=== PATIENT | male | born 1945 | race Caucasian/White ===

== ENCOUNTER → 2019-09-04 08:58 | Outpatient (CLI) | payer MEDICARE, SELFPAY ==
[2019-09-04 09:46] LABS: Add Manual Diff / Slide Review NO; Basophils Absolute Auto 100 /uL (0-100); Basophils Percent Auto 0.8 % (0-2); Eosinophils Absolute Auto 200 /uL (0-450); Eosinophils Percent Auto 2.8 % (2-4); Hematocrit 46.5 % (41-53); Hemoglobin 15.9 g/dL (13.5-17.5); Lymphocytes Absolute Auto 1600 /uL (1100-4500); Lymphocytes Percent Auto 24.3 % (25-40); Mean Corpuscular HGB Conc 34.3 % (30-36); Mean Corpuscular Hemoglobin 30.7 PG (26-34); Mean Corpuscular Volume 89.6 fL (80-100); Monocytes Absolute Auto 600 /uL (0-900); Monocytes Percent Auto 9.3 % (3-14); Neutrophils Absolute Auto 4200 /uL (1500-7000); Neutrophils Percent Auto 62.8 % (50-75); Platelet Count 205 X10^3/uL (150-400); Red Blood Cell Count 5.19 X10^6/uL (4.5-5.9); Red Cell Distribution Width 15.6 % (11.6-14.8); White Blood Cell Count 6.8 X10^3/uL (4.5-11.0)
[2019-09-04 10:15] LABS: Alanine Aminotransferase 23 IU/L (<50); Albumin 4.4 g/dL (3.5-5.0); Albumin Globulin Ratio 1.6 (1.0-2.8); Alkaline Phosphatase 76 U/L (38-126); Aspartate Aminotransferase 25 IU/L (17-59); BUN Creatinine Ratio 13.8 (6-22); Bilirubin Total 1.3 mg/dL (0.2-1.3); Blood Urea Nitrogen 13 mg/dL (9-20); Calcium 9.9 mg/dL (8.4-10.2); Carbon Dioxide 26 mmol/L (22-32); Chloride 104 mmol/L (98-107); Cholesterol 185 mg/dL (140-199); Estimated Glomerular Filt Rate > 60.0 mL/min (>60); Globulin 2.8 g/dL (1.7-4.1); Glucose 105 mg/dL (80-110); HDL Cholesterol 52 mg/dL (40-60); HEMOLYSIS < 15 (0-50); LDL Cholesterol Calculated 106 mg/dL (<100); Potassium 4.9 mmol/L (3.4-5.1); Sodium 138 mmol/L (137-145); Total Protein 7.2 g/dL (6.3-8.2); Triglycerides 136 mg/dL (35-150)
[2019-09-04 10:40] LABS: Prostate Specific Antigen Scrn 1.16 ng/mL (0.1-4.0)
== END ==
PROVIDERS: Family Provider Internal Medicine; PCP Internal Medicine; Referring Provider Internal Medicine; Visit Provider Internal Medicine
DX: E78.5 Hyperlipidemia, unspecified (principal); E66.9 Obesity, unspecified; M15.0 Primary generalized (osteo)arthritis; Z12.5 Encounter for screening for malignant neoplasm of prostate
CPT/HCPCS: 36415; 80053; 80061; 85025; G0103

== ENCOUNTER → 2020-05-17 09:00 | Outpatient (CLI) | payer OTHER, SELFPAY ==
--- NOTE | 2020-05-17 | DI.RAD.S_ITS ---
PROCEDURE: XR CHEST 2V INDICATIONS: EXERTIONAL CHEST PAIN TECHNIQUE: 2 views of the chest were acquired. COMPARISON: CT, ABDOMEN/PELVIS WITH CONTRAST, 12/08/2013, 13:17. [facility], , CHEST 2 VIEW, 06/03/2012, 12:40. [facility], , CHEST 2 VIEW, 04/13/2011, 13:40. FINDINGS: Surgical changes and devices: None. Lungs and pleura: No consolidation identified. Prominent pulmonary markings bilaterally similar to remote chest x-rays. No pleural effusions or pneumothorax. Mediastinum: Mediastinal contours appear unchanged. Density at the left cardiophrenic angle is similar to the prior exams and likely corresponds to the small Bochdalek hernia seen on prior CT from 2013. Heart size is normal. Bones and chest wall: No suspicious bony abnormalities. Soft tissues appear unremarkable. IMPRESSION: No acute cardiopulmonary abnormality. Small left Bochdalek hernia. Dictated by: Cristopher Quinteros M.D. on 05/17/2020 at 9:19 Approved by: Cristopher Quinteros M.D. on 05/17/2020 at 9:22
== END ==
PROVIDERS: Family Provider Internal Medicine; PCP Internal Medicine; Referring Provider Internal Medicine; Visit Provider Internal Medicine
DX: R07.9 Chest pain, unspecified (principal); M15.0 Primary generalized (osteo)arthritis; Q79.0 Congenital diaphragmatic hernia
CPT/HCPCS: 71046

== ENCOUNTER → 2020-05-24 11:20 | Outpatient (CLI) | payer OTHER, SELFPAY ==
[2020-05-24 14:49] LABS: COVID19 -Nasal RAPID Negative (Negative)
== END ==
PROVIDERS: Family Provider Internal Medicine; PCP Internal Medicine; Visit Provider Physician Assistant
DX: Z20.822 Contact with and (suspected) exposure to COVID-19 (principal)
CPT/HCPCS: 87635

== ENCOUNTER → 2020-05-26 10:04 | Outpatient (CLI) | payer OTHER, SELFPAY ==
--- NOTE | 2020-05-26 15:14 | PM.TREADMILL ---
Cardiac Stress Test Report Referral & Results Date Patient Seen: 05/26/20 Time Patient Seen: 15:15 Requesting provider: Glynn Paul Indication: chest pain Rest ECG: sinus rhythm with RBBB Procedure Note: After Lexiscan injection, had minimal dyspnea, no chest pain No significant ST changes after Lexiscan injection Occasional PVCs Impression: Normal Lexiscan stress test Please note: Actual ECG tracings can be found in the PACS system.
--- NOTE | 2020-05-27 16:38 | DI.NM.S_ITS ---
DATE OF SERVICE: 05/26/2020 PROCEDURE: Pharmacological perfusion study. INDICATIONS: Chest pain with underlying hyperlipidemia. The patient is a 75- year-old male. CARDIAC STRESS: 24.2 millicurie technetium-99m Myoview IV was injected at stress and 12.6 millicurie technetium-99m Myoview IV was injected at rest. CARDIAC STRESS: The patient underwent IV Lexiscan perfusion study under the supervision of an attending staff. The patient remained hemodynamically stable. [place] minimal dyspnea. No chest pain. Baseline rhythm was sinus with right bundle branch block, left anterior fascicular block and frequent PACs including atrial bigeminy. During stress, there were no new convincing ischemic changes. The patient remained to have intermittent PACs, as well as developed isolated PVCs without any ventricular tachycardia or obvious AFib. RAW DATA: There is increased subdiaphragmatic activity. Patient's weight is 231 pounds. GATED STUDY: Stress LV ejection fraction is 58 percent, however, on visualization, it was a poor gated study. Resting end-diastolic volume 125 mL. TID ratio 1.12, which is within normal limits. Lung/heart ratio 0.36, which is within normal limits. Cannot comment upon wall motion abnormalities, however, no gross wall motion abnormalities seen. MYOCARDIAL PERFUSION: Stress supine, resting supine and stress prone images were compared to each other. Stress supine and resting supine images revealed moderate-size, moderate to severely decreased perfusion of inferior wall, inferoapex, which got significantly improved during prone images. Prone images remaining have mildly decreased perfusion of distal inferior wall. No reversible ischemia. CONCLUSION: 1. No obvious reversible ischemia. 2. Stress supine and resting supine images showed moderate-sized, moderate to severely decreased perfusion of the inferior wall, inferoapex, which got significantly improved during prone images. Prone images remaining have mildly decreased perfusion of distal inferior wall. This suggests diaphragmatic tissue attenuation artifact and some persistent tissue attenuation artifact. The patient had exercise perfusion study in April,, at that time also, the patient had fixed inferior wall defect. There was no reversible ischemia. In this study, there is improvement during prone images. Overall, this is a low- risk myocardial perfusion study. Hui Luis Alfredo - Christina/renata doc#: [id number]/job#: [id number] dd: 05/26/2020 17:48:00 dt: 05/26/2020 19:41:00 DICTATING MD/COPIES TO: Bertha Veloz MD COPIES MNE: [id number];
== END ==
PROVIDERS: Family Provider Internal Medicine; PCP Internal Medicine; Referring Provider Internal Medicine; Visit Provider Internal Medicine
DX: R07.9 Chest pain, unspecified (principal); E78.5 Hyperlipidemia, unspecified
CPT/HCPCS: 78452; 93017; A9502; J2785

== ENCOUNTER → 2020-12-06 13:02 | Outpatient (CLI) | payer OTHER, SELFPAY ==
[2020-12-06 14:13] LABS: Add Manual Diff / Slide Review NO; Basophils Absolute Auto 100 /uL (0-100); Basophils Percent Auto 1.3 % (0-2); Eosinophils Absolute Auto 300 /uL (0-450); Eosinophils Percent Auto 3.2 % (2-4); Hematocrit 46.1 % (41-53); Lymphocytes Absolute Auto 1900 /uL (1100-4500); Lymphocytes Percent Auto 24.1 % (25-40); Mean Corpuscular HGB Conc 32.6 % (30-36); Mean Corpuscular Hemoglobin 30.4 PG (26-34); Mean Corpuscular Volume 93.1 fL (80-100); Monocytes Absolute Auto 800 /uL (0-900); Monocytes Percent Auto 9.4 % (3-14); Neutrophils Absolute Auto 5000 /uL (1500-7000); Platelet Count 213 X10^3/uL (150-400); Red Blood Cell Count 4.95 X10^6/uL (4.5-5.9); Red Cell Distribution Width 13.9 % (11.6-14.8)
[2020-12-06 16:08] LABS: Alanine Aminotransferase 21 IU/L (<50); Albumin 4.3 g/dL (3.5-5.0); Albumin Globulin Ratio 1.6 (1.0-2.8); Alkaline Phosphatase 64 U/L (38-126); Aspartate Aminotransferase 22 IU/L (17-59); BUN Creatinine Ratio 16.7 (6-22); Bilirubin Total 1.2 mg/dL (0.2-1.3); Blood Urea Nitrogen 14 mg/dL (9-20); Calcium 9.3 mg/dL (8.4-10.2); Carbon Dioxide 27 mmol/L (22-32); Chloride 102 mmol/L (98-107); Cholesterol 203 mg/dL (140-199); Estimated Glomerular Filt Rate > 60.0 mL/min (>60); Globulin 2.7 g/dL (1.7-4.1); Glucose 90 mg/dL (80-110); HDL Cholesterol 63 mg/dL (40-60); HEMOLYSIS 42 (0-50); LDL Cholesterol Calculated 108 mg/dL (<100); Potassium 5.1 mmol/L (3.4-5.1); Sodium 139 mmol/L (137-145); Triglycerides 158 mg/dL (35-150)
== END ==
PROVIDERS: Family Provider Internal Medicine; PCP Internal Medicine; Referring Provider Internal Medicine; Visit Provider Internal Medicine
DX: M15.0 Primary generalized (osteo)arthritis (principal); E78.5 Hyperlipidemia, unspecified; I87.2 Venous insufficiency (chronic) (peripheral)
CPT/HCPCS: 36415; 80053; 80061; 85025

== ENCOUNTER → 2023-07-13 16:35 | Outpatient (CLI) | payer MEDICARE, SELFPAY ==
[2023-07-13 18:01] LABS: Influenza A - CEPHEID Flu A NEGATIVE (NEGATIVE); Influenza B - CEPHEID Flu B NEGATIVE (NEGATIVE); Respiratory Syncytial Virus Negative (Negative)
[2023-07-13 18:23] LABS: COVID-19 CEPHEID 4-PLEX PCR Negative (Negative)
== END ==
PROVIDERS: Family Provider Internal Medicine; PCP Internal Medicine; Visit Provider Internal Medicine
DX: B34.9 Viral infection, unspecified (principal)
CPT/HCPCS: 0241U

== ENCOUNTER 2023-07-24 08:27 | Observation (INO) | payer MEDICARE, SELFPAY ==
[2023-07-24] VITALS (62 sets, daily range): BP systolic 88–152; BP diastolic 57–103; PULSE 68–136; RESP 15–38; TEMP 36.8–37.3; O2SAT 90–99; BMI 30.7; BMI 29.9
--- NOTE | 2023-07-24 08:37 | DI.RAD.S_ITS ---
PROCEDURE: XR CHEST 1V INDICATIONS: chest pain TECHNIQUE: One view of the chest was acquired. COMPARISON: [facility], [place], XR CHEST 2V, 05/17/2020, 9:03. [facility], , CHEST 2 VIEW, 06/03/2012, 12:40. FINDINGS: Surgical changes and devices: None. Lungs and pleura: Lungs are clear. No pleural effusions or pneumothorax. Mediastinum: Mediastinal contours appear normal. Heart size is enlarged. Bones and chest wall: No suspicious bony lesions. Overlying soft tissues appear unremarkable. IMPRESSION: No acute cardiopulmonary abnormality is seen. Dictated by: Pancho Johnson M.D. on 07/24/2023 at 9:12 Approved by: Pancho Johnson M.D. on 07/24/2023 at 9:12
[2023-07-24 08:57] LABS: Add Manual Diff / Slide Review NO; Basophils Absolute Auto 100 /uL (0-100); Basophils Percent Auto 0.7 % (0-2); Eosinophils Absolute Auto 400 /uL (0-450); Hematocrit 43.9 % (41-53); Hemoglobin 14.6 g/dL (13.5-17.5); Lymphocytes Absolute Auto 1500 /uL (1100-4500); Lymphocytes Percent Auto 16.8 % (25-40); Mean Corpuscular HGB Conc 33.2 % (30-36); Mean Corpuscular Hemoglobin 31.1 PG (26-34); Mean Corpuscular Volume 93.7 fL (80-100); Monocytes Absolute Auto 900 /uL (0-900); Monocytes Percent Auto 9.5 % (3-14); Neutrophils Absolute Auto 6200 /uL (1500-7000); Platelet Count 210 X10^3/uL (150-400); Red Blood Cell Count 4.68 X10^6/uL (4.5-5.9); Red Cell Distribution Width 14.1 % (11.6-14.8)
--- NOTE | 2023-07-24 09:07 | DI.ECHO.S_ITS ---
[place] +---------+ Hospital : : [address] : : [place] : : [id number] : : Phone: [phone] Echocardiogram Report + + :Name: KP GR Study Date: 07/24/2023 Height: 72 in : :Hospital ReadingLocation: Weight: 227 lb : : Gender: Male BSA: 2.2 m2 : :: 1945 Age: 78 yrs BP: 122/83 mmHg: :Reason For Study: ATRIAL FIBRILLATION : :Ordering Physician: OSMANY, : :CHICO Broussard Performed By: Patsy Beckett : :Referring: CHICO CERON : + + Interpretation Summary The patient was in atrial fibrillation with heart rates between 82-107 bpm during the exam. The left ventricle is normal in size and wall thickness. Left ventricular ejection fraction is estimated to be 35 +/- 5%. Previously LVEF 55 to 60% with sinus rhythm. Left ventricular function has significantly worsened compared to the previous exam. Overall moderate to severe global hypokinesis with severe hypokinesis of the inferior wall extending into the inferior lateral wall. Relatively better contraction at the apex. The right ventricle is moderately dilated. Right ventricular systolic function is mild to moderately reduced. Right ventricular size has increased since the prior echo exam. Right ventricular systolic function has decreased since previous exam. There is mild to moderate tricuspid regurgitation. The right ventricular systolic pressure is estimated to be at least 35 mmHg based on an estimated right atrial pressure of 15 mm Hg. Mild atherosclerotic plaque(s) in the aortic arch. Procedure: A two-dimensional transthoracic echocardiogram with color flow and Doppler was performed. The study quality was technically adequate. Comparison is made with the echocardiogram of 04/13/2011. The patient had occasional PVCs during the exam. The patient was in atrial fibrillation with heart rates between 82-107 bpm during the exam. The patient had a bundle branch block rhythm during the exam. Left Ventricle: The left ventricle is normal in size and wall thickness. There is no thrombus. Left ventricular ejection fraction is estimated to be 35 +/- 5%. Left ventricular function has significantly worsened compared to the previous exam. Overall moderate to severe global hypokinesis with severe hypokinesis of the inferior wall extending into the inferior lateral wall. Relatively better contraction at the apex. Diastolic function could not be accurately assessed due to atrial fibrillation. Right Ventricle: The right ventricle is moderately dilated. Right ventricular size has increased since the prior echo exam. Right ventricular systolic function is mild to moderately reduced. Right ventricular systolic function has decreased since previous exam. Atria: The left atrium is severely dilated. The left atrium has mildly increased in size since the prior echo exam. The right atrium is severely dilated. The right atrium has significantly increased in size since the prior echo exam. There is no Doppler evidence for an interatrial shunt. Mitral Valve: There is mild mitral annular calcification. There is mild mitral regurgitation. Aortic Valve: The aortic valve is trileaflet. The aortic valve opens well. There is no aortic valve stenosis. No aortic regurgitation is present. Tricuspid Valve: The tricuspid annulus is dilated. There is mild to moderate tricuspid regurgitation. The right ventricular systolic pressure is estimated to be at least 35 mmHg based on an estimated right atrial pressure of 15 mm Hg. Pulmonic Valve: The pulmonic valve leaflets are thin and pliable; valve motion is normal. There is trace pulmonic regurgitation. Great Vessels: The aortic root is normal size. The dimensions of the ascending aorta are normal. Mild atherosclerotic plaque(s) in the aortic arch. The IVC is dilated (diameter is greater than 2.1 cm) and it collapses less than 50% with a sniff. This suggests a high right atrial pressure of 15 mm Hg. Pericardium/ Pleura There is no pericardial effusion. There is no pleural effusion. MMode/2D Measurements & Calculations LVIDd: 5.5 cm LVOT diam: 2.3 cm LVIDs: 4.4 cm Ao root diam: 3.5 cm FS: 20.1 % asc Aorta Diam: 3.3 cm EPSS: 0.97 cm Ao Arch Diam (Prox Trans): 2.7 cm IVSd: 0.94 cm LVPWd: 0.88 cm LV foote. diameter/BSA (cm/m^2): 2.5 LV sys. diameter/BSA (cm/m^2): 2.0 LA A2 area: 28.8 cm2 RA long axis: 6.8 cm LA A4 area: 30.7 cm2 RA area: 30.0 cm2 LA length (vol): 6.7 cm RA vol: 112.5 ml LA vol: 112.8 ml RA : 50.1 ml/m2 LA vol index: 50.2 ml/m2 IVC diam: 2.9 cm RVD1 (basal): 5.3 cm RVD2 (mid): 3.7 cm TAPSE: 1.5 cm Doppler Measurements & Calculations Ao V2 max: 116.0 cm/sec LVOT Max Mack: 73.0 cm/sec Ao V2 mean: 85.2 cm/sec LV V1 max P.1 mmHg Ao max P.4 mmHg LV V1 VTI: 12.7 cm Ao mean P.1 mmHg YAMILET(I,D): 2.7 cm2 Ao V2 VTI: 19.7 cm YAMILET(V,D): 2.6 cm2 sev ratio: 0.65 YAMILET indexed to BSA (cm^2/m^2): 1.2 MV E max mack: 80.5 cm/sec TR max mack: 225.4 cm/sec MV A max mack: 1.1 cm/sec TR max P.3 mmHg MV E/A: 74.5 PA V2 max: 90.3 cm/sec Med Peak E' Mack: 7.2 cm/sec PA V2 mean: 62.1 cm/sec E/E' med: 11.2 PA mean P.8 mmHg Lat Peak E' Mack: 8.4 cm/sec PA pr(Accel): 37.9 mmHg E/E' lat: 9.6 E/e' average: 10.4 MV dec time: 0.19 sec SV(LVOT): 53.6 ml Reading Physician:01:32 PM
[2023-07-24 09:08] LABS: Alanine Aminotransferase 90 IU/L (<50); Albumin 3.8 g/dL (3.5-5.0); Albumin Globulin Ratio 1.5 (1.0-2.8); Alkaline Phosphatase 79 U/L (38-126); Aspartate Aminotransferase 45 IU/L (17-59); BUN Creatinine Ratio 17.5 (6-22); Bilirubin Total 1.9 mg/dL (0.2-1.3); Blood Urea Nitrogen 18 mg/dL (9-20); Calcium 8.6 mg/dL (8.4-10.2); Carbon Dioxide 25 mmol/L (22-32); Chloride 107 mmol/L (98-107); Creatine Kinase 51 U/L (55-170); Estimated Glomerular Filt Rate > 60 mL/min (>60); Globulin 2.6 g/dL (1.7-4.1); Glucose 104 mg/dL (80-110); HEMOLYSIS 18 (0-50); Lipase 153 U/L (23-300); Potassium 4.4 mmol/L (3.4-5.1); Sodium 136 mmol/L (137-145); Total Protein 6.4 g/dL (6.3-8.2)
[2023-07-24] MEDS: DILTIAZEM 125 MG/125 ML PIGGYBACK IV (09:15)
[2023-07-24 09:17] LABS: NT-proBNP (BNP-Adult 18+) 2980 pg/mL (<450)
[2023-07-24 09:19] LABS: Troponin I 0.016 ng/mL (0.01-0.034)
--- NOTE | 2023-07-24 09:47 | ED.GENADULT ---
HPI - General Adult General Chief complaint: Shortness of Breath/Dyspnea Stated complaint: dyspnea Time Seen by Provider: 07/24/23 08:37 Source: patient Mode of arrival: Family Vehicle History of Present Illness HPI narrative: 78-year-old gentleman with a history of asthma, hyperlipidemia, history of bladder cancer presents with persistent cough. Was seen on July 12 by his primary physician who felt that he either had a viral syndrome or an atypical bronchitis with negative COVID influenza and RSV testing done at that time. He notes that he had significant upper respiratory symptoms for a week preceding that visit.. He was placed on a Medrol Dosepak and Z-Sal. He presents to urgent Care today saying the he has has improved with overall cough but is still complains of cough, dyspnea, lower extremity edema, exertional dyspnea and orthopnea. No overt chest pain or headache. No fevers. He has no sensation that his heart rate is going fast Related Data Home Medications Medication Instructions Recorded Confirmed multivitamin 1 tab PO DAILY 01/18/23 07/13/23 Previous Rx's Medication Instructions Recorded atorvastatin 20 mg tablet 20 mg PO DAILY #90 tabs 01/18/23 Allergies Allergy/AdvReac Type Severity Reaction Status Date / Time No Known Drug Allergies Allergy Verified 07/24/23 08:37 Review of Systems Review of Systems Narrative: Pertinent positive and negative findings as per HPI Patient History Medical History Overweight History of bladder cancer Mixed hyperlipidemia Social History details: (Aide), no children; retired shipyard work Smoking Status: Former smoker Smoking Status: Former smoker tobacco type: cigarettes alcohol intake frequency: holidays/special occasions only Substance Use Type: does not use Exam Initial Vital Signs Initial Vital Signs: Vital Signs Temperature 98.3 F 07/24/23 08:31 Pulse Rate 124 H 07/24/23 08:31 Respiratory Rate 22 07/24/23 08:31 Blood Pressure 145/96 H 07/24/23 08:31 Pulse Oximetry 99 07/24/23 08:31 Oxygen Delivery Method Room Air 07/24/23 08:31 General: Healthy appearing, in no acute distress. Able to give a complete and coherent history. Well-nourished well-developed HEENT: Moist mucous membranes, normal sclera with reactive pupils, Neck: Mild JVD, Respiratory: Minimal bibasilar crackles, no rhonchi, no wheezing Cardiac: Rate is in the 120 range, he is in atrial fibrillation and it is a regular Abdomen: Soft, nontender, good bowel tones, no flank pain Skin: Warm and dry, no rashes Neurologic: Grossly neurologically intact with no obvious asymmetries or abnormalities Extremities: No trauma, well perfused, 1+ bilateral edema Psych: Cooperative, appropriate insight and affect Course Orders Ordered: ED Orders 07/24/23 08:37 XR chest 1V Stat EKG-12 Lead Stat 07/24/23 08:50 Complete Blood Count AUTO DIFF Stat Comprehensive Metabolic Panel Stat Lipase Stat NT-proBNP (BNP-Adult 18+) Stat Troponin & CK Cardiac Panel Stat 07/24/23 09:07 EC echo doppler complete Urgent DILTIAZEM (Diltiazem 125 Mg/125 Ml-D5w) 125 mg in 125 mls @ 5 mls/hr IV TITRATE DEDE; Protocol Last Titration: 07/24/23 09:50 Dose: 10 mg/hr, 10 mls/hr Documented By: Admin: 07/24/23 09:15 Dose: 5 mg/hr, 5 mls/hr Documented By: HARRY Discontinued Medications Diltiazem HCl (Diltiazem 5 Mg/Ml Sdv) 20 mg IV NOW ONE Stop: 07/24/23 10:02 Vital Signs Vital signs: Vital Signs - 8 hr 07/24/23 08:31 07/24/23 08:41 07/24/23 08:48 Temperature 98.3 F Pulse Rate 124 H 135 H 135 H Respiratory Rate 22 Blood Pressure 145/96 H Pulse Oximetry 99 97 Oxygen Delivery Method Room Air 07/24/23 08:48 07/24/23 09:00 07/24/23 09:00 Temperature Pulse Rate 127 H Respiratory Rate 20 Blood Pressure 129/78 141/103 H Pulse Oximetry 96 Oxygen Delivery Method 07/24/23 09:26 07/24/23 09:26 07/24/23 09:30 Temperature Pulse Rate 136 H 133 H Respiratory Rate 22 22 Blood Pressure 110/80 Pulse Oximetry 97 Oxygen Delivery Method 07/24/23 09:31 07/24/23 09:31 07/24/23 09:35 Temperature Pulse Rate 132 H 125 H Respiratory Rate 22 19 Blood Pressure 144/89 H Pulse Oximetry 96 96 Oxygen Delivery Method 07/24/23 09:35 Temperature Pulse Rate Respiratory Rate Blood Pressure 126/88 Pulse Oximetry Oxygen Delivery Method Medical Decision Making Lab Data 07/24/23 08:50 07/24/23 08:50 Labs: Lab Results 07/24/23 Range/Units 08:50 WBC 9.0 (4.5-11.0) X10^3/uL RBC 4.68 (4.5-5.9) X10^6/uL Hgb 14.6 (13.5-17.5) g/dL Hct 43.9 (41-53) % MCV 93.7 (80-100) fL MCH 31.1 (26-34) PG MCHC 33.2 (30-36) % RDW 14.1 (11.6-14.8) % Plt Count 210 (150-400) X10^3/uL Neut % (Auto) 69.0 (50-75) % Lymph % (Auto) 16.8 L (25-40) % [place] % (Auto) 9.5 (3-14) % Eos % (Auto) 4.0 (2-4) % Baso % (Auto) 0.7 (0-2) % Neut # (Auto) 6200 (0785-5375) /uL Lymph # (Auto) 1500 (5320-5979) /uL [place] # (Auto) 900 (0-900) /uL Eos # (Auto) 400 (0-450) /uL Baso # (Auto) 100 (0-100) /uL Sodium 136 L (137-145) mmol/L Potassium 4.4 (3.4-5.1) mmol/L Chloride 107 (98-107) mmol/L Carbon Dioxide 25 (22-32) mmol/L BUN 18 (9-20) mg/dL Creatinine 1.03 (0.66-1.25) mg/dL Estimated GFR > 60 (>60) mL/min BUN/Creatinine Ratio 17.5 (6-22) Glucose 104 (80-110) mg/dL Calcium 8.6 (8.4-10.2) mg/dL Total Bilirubin 1.9 H (0.2-1.3) mg/dL AST 45 (17-59) IU/L ALT 90 H (<50) IU/L Alkaline Phosphatase 79 (38-126) U/L Total Creatine Kinase 51 L (55-170) U/L Troponin I 0.016 (0.01-0.034) ng/mL NT-Pro-B Natriuret Pep 2980 H (<450) pg/mL Total Protein 6.4 (6.3-8.2) g/dL Albumin 3.8 (3.5-5.0) g/dL Globulin 2.6 (1.7-4.1) g/dL Albumin/Globulin Ratio 1.5 (1.0-2.8) Lipase 153 (23-300) U/L MDM Narrative Medical decision making narrative: CC: Persistent cough Complicating co-morbidities: New diagnosis atrial fibrillation with rapid ventricular response, clinical exam consistent with congestive heart failure, mild asthma Data collected from: patient, Medical records reviewed: Notes from recent outpatient visits are reviewed Differential considered: Viral syndrome, postviral cardiomyopathy, new atrial fibrillation, rate related congestive heart failure, NSTEMI with subsequent heart failure Exam documented above, pertinent findings include: Mild JVD, minimal basilar crackles, minimal lower extremity edema, no significant wheezing exam is otherwise benign Lab Test results independently reviewed as above. Pertinent findings: CBC is unremarkable. No leukocytosis no significant anemia Chemistries are reassuring with normal renal function. Bili minimally elevated at 1.9 AST slightly elevated at 90 Troponin is undetectable BNP is elevated at 2980 lipase is not elevated Independently reviewed EKG: Atrial fibrillation at a rate of 130. Right bundle branch block no acute ischemia Imaging studies independently reviewed: Chest x-ray shows mild cardiomegaly with mild cephalization but not overt volume overload Consultations: Treatments: Diltiazem and diltiazem drip with a goal of rate below 100. Parenteral furosemide for his mild volume overload, oral apixaban while we are sorting through his new diagnosis of atrial fibrillation reduce his risk of stroke. Re-evaluations: Discussion: 78-year-old gentleman with what sounds like a viral syndrome about 3 weeks ago, treated with prednisone and azithromycin about 1 week ago most of those symptoms have resolved however he continues to have a slight cough, exertional dyspnea and orthopnea. He is found today to be in new atrial fibrillation with rate related congestive heart failure. He does not have a sensation of palpitations her his heart going fast. No chest pain and no evidence of acute coronary syndrome or recent acute coronary event. D-dimer was added to see if we should do a chest can concern for pulmonary embolism. He is on IV diltiazem for rate control, IV Lasix for diuresis and has been given apixaban is an oral anticoagulant. He has in no acute distress at this time but will need hospital admission for further evaluation of his atrial fibrillation. His primary care physician is Dr. Chaidez and Dr. Hidalgo, hospitalist will admit this patient for further evaluation Critical Care Time Critical Care Time Critical Care Time: Yes Total Critical Care Time: 37 Attestation: Critical care time is separate from other billable procedures. There is a high probability of a significant, sudden or life-threatening deterioration that requires my full and direct attention, intervention and personal management. This critical care time includes consultation with family and other consulting doctors, review of records, and interpretation of data from labs, EKGs and imaging as well as managements of atrial fibrillation with rapid ventricular response with parenteral rate control medications as well as parenteral diuretics Discharge Plan Departure Patient Disposition: Admitted as Observation Clinical Impression: New onset a-fib, Atrial fibrillation with rapid ventricular response Congestive heart failure Qualifiers: Heart failure type: unspecified Heart failure chronicity: acute Qualified Code(s): I50.9 - Heart failure, unspecified
[2023-07-24] MEDS: FUROSEMIDE 40 MG/4 ML VIAL IV (10:09)
[2023-07-24] MEDS: APIXABAN 5 MG TABLET PO ×2 (10:09→20:20)
[2023-07-24] MEDS: dilTIAZem 5 MG/ML SDV 20 MG IV (10:11)
[2023-07-24 10:33] LABS: D Dimer 4288 ng/ml (<500)
--- NOTE | 2023-07-24 11:03 | P.HP_ITS ---
History of Present Illness History of Present Illness Date Patient Seen: 07/24/23 Chief complaint: dyspnea Narrative: Luis Alfredo Ames is an 78yo M with PMH of bladder cancer, HLD and asthma who presents with new-onset A-fib RVR in the setting of likely viral URI. Patient notes 3 weeks of cough, rhinorrhea, SOB and fatigue. Was given abx and steroids which helped some, then his SOB worsened and he developed orthopnea. Sent to the ED from the walk-in clinic after being found in A-fib RVR. In the ED placed on dilt drip and given 40 of IV lasix. Patient's currently at bedside and says she thinks he likely has undiagnosed sleep apnea. He snores loudly and sometimes stops breathing. Has never had a sleep study. Patient currently feels well at rest, but gets very SOB when lying flat. He cannot feel when his HR is fast. Denies CP, NV, abd pain, or diarrhea. He denies alcohol use. [facility] Medical History Overweight History of bladder cancer Mixed hyperlipidemia Social History details: (Aied), no children; retired shipyard work household members: spouse Smoking Status: Former smoker Meds Home Medications and Allergies Home Medications Medication Instructions Recorded Confirmed Type atorvastatin 20 mg tablet 20 mg PO DAILY #90 tabs 01/18/23 07/24/23 Rx multivitamin 1 tab PO DAILY 01/18/23 07/24/23 History Allergies Allergy/AdvReac Type Severity Reaction Status Date / Time No Known Drug Allergies Allergy Verified 07/24/23 08:37 Review of Systems Review of Systems Narrative: All other systems reviewed with the patient and are negative unless otherwise stated. Exam Vital Signs (past 8 hours): - 07/24/23 08:31 07/24/23 08:41 07/24/23 08:48 Temperature 98.3 F Pulse Rate 124 H 135 H 135 H Respiratory Rate 22 Blood Pressure 145/96 H Pulse Oximetry 99 97 Oxygen Delivery Method Room Air 07/24/23 08:48 07/24/23 09:00 07/24/23 09:00 Temperature Pulse Rate 127 H Respiratory Rate 20 Blood Pressure 129/78 141/103 H Pulse Oximetry 96 Oxygen Delivery Method 07/24/23 09:26 07/24/23 09:26 07/24/23 09:30 Temperature Pulse Rate 136 H 133 H Respiratory Rate 22 22 Blood Pressure 110/80 Pulse Oximetry 97 Oxygen Delivery Method 07/24/23 09:31 07/24/23 09:31 07/24/23 09:35 Temperature Pulse Rate 132 H 125 H Respiratory Rate 22 19 Blood Pressure 144/89 H Pulse Oximetry 96 96 Oxygen Delivery Method 07/24/23 09:35 07/24/23 09:40 07/24/23 09:40 Temperature Pulse Rate 127 H Respiratory Rate 18 Blood Pressure 126/88 128/97 H Pulse Oximetry 97 Oxygen Delivery Method 07/24/23 09:46 07/24/23 09:46 07/24/23 09:51 Temperature Pulse Rate 130 H Respiratory Rate 24 Blood Pressure 152/85 H 126/88 Pulse Oximetry 97 Oxygen Delivery Method 07/24/23 09:51 07/24/23 09:55 07/24/23 09:55 Temperature Pulse Rate 122 H 125 H Respiratory Rate 20 19 Blood Pressure 129/102 H Pulse Oximetry 96 97 Oxygen Delivery Method 07/24/23 10:00 07/24/23 10:00 07/24/23 10:06 Temperature Pulse Rate 119 H 130 H Respiratory Rate 23 Blood Pressure 129/87 Pulse Oximetry 97 96 Oxygen Delivery Method 07/24/23 10:06 07/24/23 10:10 07/24/23 10:10 Temperature Pulse Rate 120 H Respiratory Rate 22 Blood Pressure 139/103 H 129/102 H Pulse Oximetry 96 Oxygen Delivery Method 07/24/23 10:20 07/24/23 10:20 07/24/23 10:25 Temperature Pulse Rate 109 H 92 H Respiratory Rate 16 21 Blood Pressure 118/80 Pulse Oximetry 96 95 Oxygen Delivery Method Room Air 07/24/23 10:25 07/24/23 10:31 07/24/23 10:31 Temperature Pulse Rate 104 H Respiratory Rate 18 Blood Pressure 125/88 143/73 H Pulse Oximetry 95 Oxygen Delivery Method 07/24/23 10:36 07/24/23 10:36 07/24/23 10:40 Temperature Pulse Rate 93 H 103 H Respiratory Rate 15 Blood Pressure 130/75 Pulse Oximetry 92 95 Oxygen Delivery Method 07/24/23 10:40 07/24/23 10:45 07/24/23 10:45 Temperature Pulse Rate 96 H Respiratory Rate 21 Blood Pressure 133/91 H 114/80 Pulse Oximetry 94 Oxygen Delivery Method Oxygen Delivery Method Room Air Narrative Exam Narrative: GEN: no acute distress, hard of hearing HEENT: moist mucous membranes, PERRL NECK: trachea midline, no JVD CV: tachycardic, irregularly irregular, no murmurs PULM: mild rales ABD: soft, nontender, nondistended, no organomegaly EXT: warm and well perfused with 1+ edema NEURO: awake, alert, oriented, no focal deficits Objective Labs 07/24/23 08:50 07/24/23 08:50 Labs: Laboratory Results - last 24 hr 07/24/23 08:50 WBC 9.0 RBC 4.68 Hgb 14.6 Hct 43.9 MCV 93.7 MCH 31.1 MCHC 33.2 RDW 14.1 Plt Count 210 Neut % (Auto) 69.0 Lymph % (Auto) 16.8 L [place] % (Auto) 9.5 Eos % (Auto) 4.0 Baso % (Auto) 0.7 Neut # (Auto) 6200 Lymph # (Auto) 1500 [place] # (Auto) 900 Eos # (Auto) 400 Baso # (Auto) 100 D-Dimer 4288 H Sodium 136 L Potassium 4.4 Chloride 107 Carbon Dioxide 25 BUN 18 Creatinine 1.03 Estimated GFR > 60 BUN/Creatinine Ratio 17.5 Glucose 104 Calcium 8.6 Total Bilirubin 1.9 H AST 45 ALT 90 H Alkaline Phosphatase 79 Total Creatine Kinase 51 L Troponin I 0.016 NT-Pro-B Natriuret Pep 2980 H Total Protein 6.4 Albumin 3.8 Globulin 2.6 Albumin/Globulin Ratio 1.5 Lipase 153 Assessment & Plan Assessment & Plan narrative: # new-onset atrial fibrillation -HR up to 130's in ED, dilt drip started then changed to metoprolol after echo showed reduced EF -echo with EF 35%, previously 55-60% with mod-severe global hypokinesis of LV -spoke with cardiology, recommended metoprolol po if BP can handle and if hypotension develops switch to digoxin -[id number] of 2 therefore will need anticoag, eliquis started -tele # new-onset HFrEF -echo results as above, likely tachycardia mediated -given IV lasix 40mg in ED, -1.2L thus far -hold further diuresis due to soft BP -will hopefully add lisinopril 2.5mg prior to discharge once rate controlled # likely undiagnosed RAIZA -recommend outpatient sleep study # HLD -continue statin # h/o bladder cancer Code status is full code. DVT prophylaxis with eliquis. Proxy is Aide. I have reviewed home meds and used all available resources to reconcile the home meds. Case discussed with ED physician/APC and patient will be admitted to the hospitalist service for further workup and management. This patient will be admitted as inpatient and will require greater than 2 midnights of hospital time to treat new-onset A-fib RVR.
[2023-07-24 11:43] LABS: Magnesium 2.2 mg/dL (1.6-2.3)
[2023-07-24] MEDS: METOPROLOL IR 25 MG TABLET PO ×3 (13:59→23:52)
[2023-07-24 15:00] LABS: Appearance Urine UA CLEAR; Bilirubin Urine UA NEGATIVE (NEGATIVE); Color Urine UA YELLOW; Glucose Urine UA NEGATIVE (Negative); Ketones Urine UA NEGATIVE (NEGATIVE); Leukocyte Esterase Urine UA TRACE (NEGATIVE); Nitrite Urine UA NEGATIVE (Negative); Occult Blood Urine UA NEGATIVE (Negative); Protein Urine UA NEGATIVE (Negative); Urobilinogen Urine UA 0.2 E.U./dL (0.2); pH Urine UA 5.5 (4.5-8.0)
[2023-07-24 15:20] LABS: MRSA (Nasal) PCR NOT DETECTED (Not Detect)
[2023-07-24 15:33] LABS: Bacteria Urine None Seen; Culture Indicated Urine Cult Not Indicated; RBC Urine None Seen (0-5/HPF); Squamous Epithelial Cell Urine 0-1 /HPF (0-5/HPF); Urine Volume 10mL (spun); WBC Urine 0-1/HPF (0-5/HPF)
[2023-07-24 15:42] LABS: Free T4, Direct Thyroxine 1.52 ng/dL (0.78-2.19)
[2023-07-24] MEDS: ATORVASTATIN 20 MG TABLET PO (20:20)
[2023-07-24] MEDS: MELATONIN 3 MG TABLET 6 MG PO (20:20)
[2023-07-24] MEDS: SODIUM CHLORIDE 0.9% FLUSH 10 ML IV (20:20)
[2023-07-25] VITALS: BP 123/84; PULSE 76; RESP 16; TEMP 37.1; O2SAT 94
[2023-07-25 04:00] VITALS: BP 102/73; PULSE 71; RESP 16; TEMP 36.9; O2SAT 95
[2023-07-25 05:09] LABS: Add Manual Diff / Slide Review NO; Basophils Absolute Auto 100 /uL (0-100); Basophils Percent Auto 0.8 % (0-2); Eosinophils Absolute Auto 400 /uL (0-450); Hematocrit 42.5 % (41-53); Lymphocytes Absolute Auto 1400 /uL (1100-4500); Lymphocytes Percent Auto 18.4 % (25-40); Mean Corpuscular Hemoglobin 30.9 PG (26-34); Mean Corpuscular Volume 93.5 fL (80-100); Monocytes Absolute Auto 800 /uL (0-900); Neutrophils Absolute Auto 5100 /uL (1500-7000); Neutrophils Percent Auto 65.8 % (50-75); Platelet Count 195 X10^3/uL (150-400); Red Blood Cell Count 4.54 X10^6/uL (4.5-5.9); Red Cell Distribution Width 14.3 % (11.6-14.8); White Blood Cell Count 7.8 X10^3/uL (4.5-11.0)
[2023-07-25 05:22] LABS: BUN Creatinine Ratio 16.8 (6-22); Blood Urea Nitrogen 16 mg/dL (9-20); Calcium 8.6 mg/dL (8.4-10.2); Carbon Dioxide 25 mmol/L (22-32); Chloride 107 mmol/L (98-107); Estimated Glomerular Filt Rate > 60 mL/min (>60); Glucose 102 mg/dL (80-110); HEMOLYSIS 19 (0-50); Potassium 4.3 mmol/L (3.4-5.1); Sodium 136 mmol/L (137-145)
[2023-07-25] MEDS: METOPROLOL IR 25 MG TABLET PO (05:46)
[2023-07-25 08:00] VITALS: BP 120/92; PULSE 68; RESP 15; TEMP 36.9; O2SAT 94
[2023-07-25] MEDS: APIXABAN 5 MG TABLET PO (08:10)
[2023-07-25] MEDS: METOPROLOL ER 50 MG TABLET PO (08:11)
--- NOTE | 2023-07-25 11:25 | CM.DANOTE ---
Initial DCP Assessment Visit Note Reviewed EMR and team rounds for status updates. This CREAM DUMPER was unable to meet with patient in person due to him having discharged early this morning. Pt lives independently with his spouse in their own home in [place]. His was able to transport him home. Payor: THEODORE SALINAS PCP: Dr. Chaidez Pt is a 78 year-old M who presented to the ED last evening with c/o 3-weeks of worsening cough, despite having taken a course of antibiotics. He was found to be in Afib with RVR, was admitted overnight and treated. This morning he had significantly improved, and was medically cleared to discharge home. No needs were identified for DCP during his stay. Discharge Planning/Care Management Advanced directive, confirm from FAMILY Start: 07/24/23 14:08 Freq: Q24H Status: Discharge Protocol: Document 07/24/23 14:08 HUSSAIN (Rec: 07/24/23 17:50 HUSSAIN [id number]) Advance Directive, confirm on record Time 17:50 Person contacted patient Copy received No CM Discharge Assessment Start: 07/25/23 11:24 Freq: Status: Discharge Protocol: Document 07/25/23 11:24 DPL (Rec: 07/25/23 11:25 DPL [id number]) Discharge Planning Assessment Assigned Cleaner Greaser JORGE Rosenberg Advance Directives? Yes Advance Directives on File No History Provided By Medical Record Has Patient been admitted in last 30 No days? Prior Living Arrangements House Household Members spouse Type of transporation used prior to Drives own vehicle admit Independent with ADL's Yes Is patient alert and oriented? Yes Caregiver for Another No Comment No identified needs during this hospital admission. Barriers to Discharge No Discharge Plan Home Transportation Arrangement Spouse Referrals Initiated None needed Review Status In Process Please Provide Date Initial DC 07/25/23 Assessment Was Performed
--- NOTE | 2023-07-25 12:06 | PM.DS.1 ---
History of Present Illness History of Present Illness Chief complaint: dyspnea Narrative: Luis Alfredo Ames is an 78yo M with PMH of bladder cancer, HLD and asthma who presents with new-onset A-fib RVR in the setting of likely viral URI. Patient notes 3 weeks of cough, rhinorrhea, SOB and fatigue. Was given abx and steroids which helped some, then his SOB worsened and he developed orthopnea. Sent to the ED from the walk-in clinic after being found in A-fib RVR. In the ED placed on dilt drip and given 40 of IV lasix. Patient's currently at bedside and says she thinks he likely has undiagnosed sleep apnea. He snores loudly and sometimes stops breathing. Has never had a sleep study. Patient currently feels well at rest, but gets very SOB when lying flat. He cannot feel when his HR is fast. Denies CP, NV, abd pain, or diarrhea. He denies alcohol use. Discharge Providers Provider Date of admission: 07/24/23 11:07 Discharge Date: 07/25/23 Primary care physician: Branden Chaidez MD Discharge provider: Papa Hidalgo DO Summary Hospital Course Discharge Diagnosis: # new-onset atrial fibrillation -HR up to 130's in ED, dilt drip started then changed to metoprolol after echo showed reduced EF -echo with EF 35%, previously 55-60% with mod-severe global hypokinesis of LV -spoke with cardiology, recommended metoprolol po if BP can handle and if hypotension develops switch to digoxin -[id number] of 2 therefore will need anticoag, eliquis started -tele # new-onset HFrEF -echo results as above, likely tachycardia mediated -given IV lasix 40mg in ED, -1.2L thus far -hold further diuresis due to soft BP -added lisinopril 2.5mg daily # likely undiagnosed RAIZA -recommend outpatient sleep study # HLD -continue statin # h/o bladder cancer Hospital Course: Admitted for SOB and found to be in newly diagnosed A-fib RVR. Initially put on a dilt drip in the ED, but his echo came back with EF 35% so this was switched to po metoprolol. He tolerated the metoprolol well and his HR improved from 130's to 70-80's. Also placed on eliquis and lisinopril. Cardiology thinks likely tachycardia-mediated CHF. He will f/up with PCP for a cardiology referral. Exam Vital Signs (past 8 hours): - 07/25/23 07:00 07/25/23 08:00 Temperature 98.4 F Pulse Rate 68 Respiratory Rate 15 Blood Pressure 120/92 H Pulse Oximetry 94 Oxygen Delivery Method Room Air Oxygen Flow Rate 0 Oxygen Delivery Method Room Air Oxygen Flow Rate 0 Narrative Exam Narrative: GEN: no acute distress, hard of hearing HEENT: moist mucous membranes, PERRL NECK: trachea midline, no JVD CV: irregularly irregular, no murmurs PULM: mild rales ABD: soft, nontender, nondistended, no organomegaly EXT: warm and well perfused with 1+ edema NEURO: awake, alert, oriented, no focal deficits Objective Labs 07/25/23 04:04 07/25/23 04:04 Labs: Laboratory Results - last 24 hr 07/24/23 07/24/23 07/24/23 08:50 13:24 14:45 WBC RBC Hgb Hct MCV MCH MCHC RDW Plt Count Neut % (Auto) Lymph % (Auto) [place] % (Auto) Eos % (Auto) Baso % (Auto) Neut # (Auto) Lymph # (Auto) [place] # (Auto) Eos # (Auto) Baso # (Auto) Sodium Potassium Chloride Carbon Dioxide BUN Creatinine Estimated GFR BUN/Creatinine Ratio Glucose Calcium TSH 0.40 L Free T4 1.52 Urine Color Yellow Urine Appearance Clear Urine pH 5.5 Ur Specific [place] 1.010 Urine Protein Negative Urine Glucose (UA) Negative Urine Ketones Negative Urine Occult Blood Negative Urine Nitrate Negative Urine Bilirubin Negative Urine Urobilinogen 0.2 Ur Leukocyte Esterase Trace H Urine RBC None seen Urine WBC 0-1/hpf Ur Squamous Epith Cells 0-1 /hpf Urine Bacteria None seen Ur Culture Indicated? Cult not indicated Vol Urine Centrifuged 10ml (spun) Nasal Screen MRSA (PCR) Not detected 07/25/23 04:04 WBC 7.8 RBC 4.54 Hgb 14.0 Hct 42.5 MCV 93.5 MCH 30.9 MCHC 33.0 RDW 14.3 Plt Count 195 Neut % (Auto) 65.8 Lymph % (Auto) 18.4 L [place] % (Auto) 10.0 Eos % (Auto) 5.0 H Baso % (Auto) 0.8 Neut # (Auto) 5100 Lymph # (Auto) 1400 [place] # (Auto) 800 Eos # (Auto) 400 Baso # (Auto) 100 Sodium 136 L Potassium 4.3 Chloride 107 Carbon Dioxide 25 BUN 16 Creatinine 0.95 Estimated GFR > 60 BUN/Creatinine Ratio 16.8 Glucose 102 Calcium 8.6 TSH Free T4 Urine Color Urine Appearance Urine pH Ur Specific [place] Urine Protein Urine Glucose (UA) Urine Ketones Urine Occult Blood Urine Nitrate Urine Bilirubin Urine Urobilinogen Ur Leukocyte Esterase Urine RBC Urine WBC Ur Squamous Epith Cells Urine Bacteria Ur Culture Indicated? Vol Urine Centrifuged Nasal Screen MRSA (PCR) PFSH Medical History Overweight History of bladder cancer Mixed hyperlipidemia Social History details: (Aide), no children; retired shipyard work household members: spouse Smoking Status: Former smoker Discharge Plan Discharge Plan Patient Disposition: Home Provider Discharge Comment: You were diagnosed with atrial fibrillation. You will now be on new heart medications. Please follow-up with Dr. Chaidez for a cardiology referral. Discharge orders & Medications Prescriptions: New Eliquis 5 mg Tablet 5 mg PO BID Qty: 60 0RF metoprolol succinate 50 mg Tablet Extended Release 24 Hr 50 mg PO BID Qty: 60 0RF lisinopril 2.5 mg tablet 2.5 mg PO DAILY Qty: 30 0RF Continued multivitamin Tablet 1 tab PO DAILY atorvastatin 20 mg tablet 20 mg PO DAILY Qty: 90 3RF Follow up/Referrals: Branden Chaidez MD [Primary Care Provider] - 08/01/23 3:00 pm (Appt:07/31 @ 3:[address] Chaidez please arrive 15 min prior to schedduled appointment time ) Visit Report/Discharge Packet Stand Alone Forms: Patient Portal/API, Stroke Signs & Symptoms Discharge Data Primary Care Provider: Branden Chaidez V
== END 2023-07-25 09:55 | disposition home or self-care (01) ==
LOC: ED 09:08 → AC 11:28 → ICU 11:47 → AC 07-27 08:27 → ICU 07-27 08:27
PROVIDERS: Admitting Provider Student in an Organized Health Care Education/Training Program; Emergency Provider Emergency Medicine; Family Provider Internal Medicine; PCP Internal Medicine; Referring Provider Emergency Medicine; Visit Provider Student in an Organized Health Care Education/Training Program
DX: I48.91 Unspecified atrial fibrillation (principal); I50.21 Acute systolic (congestive) heart failure
CPT/HCPCS: 36415; 71045; 80048; 80053; 81001; 82550; 83690; 83735; 83880; 84439; 84443; 84484; 85025; 85379; 87797; 93005; 93306; 96365; 96366; 96375; 99284; 99291; G0378; J1940

== ENCOUNTER → 2023-08-01 15:40 | Outpatient (CLI) | payer MEDICARE, SELFPAY ==
[2023-07-25 09:42] VITALS: BMI 29.9
[2023-08-01 18:22] LABS: BUN Creatinine Ratio 20.2 (6-22); Blood Urea Nitrogen 23 mg/dL (9-20); Calcium 9.1 mg/dL (8.4-10.2); Carbon Dioxide 26 mmol/L (22-32); Chloride 110 mmol/L (98-107); Estimated Glomerular Filt Rate > 60 mL/min (>60); Glucose 99 mg/dL (80-110); HEMOLYSIS 24 (0-50); Potassium 4.3 mmol/L (3.4-5.1); Sodium 138 mmol/L (137-145)
== END ==
PROVIDERS: Family Provider Internal Medicine; PCP Internal Medicine; Referring Provider Internal Medicine; Visit Provider Internal Medicine
DX: I50.22 Chronic systolic (congestive) heart failure (principal)
CPT/HCPCS: 36415; 80048

== ENCOUNTER → 2023-10-31 16:04 | Outpatient (CLI) | payer MEDICARE, SELFPAY ==
[2023-07-25 09:42] VITALS: BMI 29.9
[2023-10-31 17:23] LABS: BUN Creatinine Ratio 12.9 (6-22); Blood Urea Nitrogen 15 mg/dL (9-20); Calcium 9.4 mg/dL (8.4-10.2); Carbon Dioxide 26 mmol/L (22-32); Chloride 105 mmol/L (98-107); Estimated Glomerular Filt Rate > 60 mL/min (>60); Glucose 104 mg/dL (80-110); HEMOLYSIS < 15 (0-50); Potassium 5.2 mmol/L (3.4-5.1); Sodium 137 mmol/L (137-145)
== END ==
PROVIDERS: Family Provider Internal Medicine; PCP Internal Medicine; Referring Provider Internal Medicine; Visit Provider Internal Medicine
DX: I50.22 Chronic systolic (congestive) heart failure (principal)
CPT/HCPCS: 36415; 80048

== ENCOUNTER 2024-02-01 16:13 | Emergency (ER) | payer MEDICARE, SELFPAY ==
[2023-07-25 09:42] VITALS: BMI 29.9
[2024-02-01] VITALS (19 sets, daily range): BP systolic 125–170; BP diastolic 59–80; PULSE 45–70; RESP 16–24; TEMP 36.4; O2SAT 96–98; BMI 29.7
[2024-02-01 17:38] LABS: Add Manual Diff / Slide Review NO; Basophils Absolute Auto 0 /uL (0-100); Basophils Percent Auto 0.6 % (0-2); Eosinophils Absolute Auto 400 /uL (0-450); Eosinophils Percent Auto 5.5 % (2-4); Hematocrit 43.3 % (41-53); Hemoglobin 14.1 g/dL (13.5-17.5); Lymphocytes Absolute Auto 1600 /uL (1100-4500); Lymphocytes Percent Auto 22.3 % (25-40); Mean Corpuscular HGB Conc 32.7 % (30-36); Mean Corpuscular Hemoglobin 30.9 PG (26-34); Mean Corpuscular Volume 94.7 fL (80-100); Monocytes Absolute Auto 800 /uL (0-900); Monocytes Percent Auto 10.8 % (3-14); Neutrophils Absolute Auto 4300 /uL (1500-7000); Neutrophils Percent Auto 60.8 % (50-75); Platelet Count 181 X10^3/uL (150-400); Red Blood Cell Count 4.57 X10^6/uL (4.5-5.9); White Blood Cell Count 7.2 X10^3/uL (4.5-11.0)
[2024-02-01 17:43] LABS: Alanine Aminotransferase 22 IU/L (<50); Albumin 3.7 g/dL (3.5-5.0); Albumin Globulin Ratio 1.2 (1.0-2.8); Alkaline Phosphatase 67 U/L (38-126); Aspartate Aminotransferase 25 IU/L (17-59); BUN Creatinine Ratio 15.8 (6-22); Bilirubin Total 1.1 mg/dL (0.2-1.3); Blood Urea Nitrogen 22 mg/dL (9-20); Calcium 9.2 mg/dL (8.4-10.2); Carbon Dioxide 30 mmol/L (22-32); Chloride 106 mmol/L (98-107); Estimated Glomerular Filt Rate 51 mL/min (>60); Glucose 108 mg/dL (80-110); HEMOLYSIS 28 (0-50); Potassium 4.7 mmol/L (3.4-5.1); Sodium 137 mmol/L (137-145); Total Protein 6.7 g/dL (6.3-8.2)
--- NOTE | 2024-02-01 18:18 | ED.RECABL ---
HPI - Recheck/Abnormal Lab/Rx General Chief Complaint: Recheck/Abnormal Lab/Rx Stated Complaint: sent by PCP r/u blood clot Time Seen by Provider: 02/01/24 17:26 Source: patient Mode of arrival: Family Vehicle History of Present Illness HPI narrative: Patient is a 78-year-old male. One week ago underwent a right-sided groin approach for a cardiac ablation. He states the procedure went well. Three days ago he had a routine follow-up with his primary doctor that was already scheduled. During that visit it was noticed by his primary doctor that there were ?abnormal sounds? in the area around the insertion site in his right groin. He was sent to [facility] for further evaluation. While he was there he had a ultrasound and a CT scan with contrast. He was told that there was a ?fistula? in the area. According to the patient and his they were attempting to find a vascular surgeon to discuss the case with and the patient in his decided that they did not want to stay in the department for this length of time so they left the emergency department. Approximately 18 hours ago the patient started to have pain in his right groin area. When he reached down to feel the area he felt a small lump. He contacted his dry plasterer office who advised that he come to the emergency department for further evaluation. He denies chest pain, palpitations, shortness of breath, numbness and tingling in his right leg. No abdominal pain. No problems urinating. Change in bowel habits. Related Data Previous Rx's Medication Instructions Recorded atorvastatin 20 mg tablet 20 mg PO DAILY #90 tabs 01/18/23 apixaban 5 mg tablet (Eliquis) 5 mg PO BID #180 tabs 08/01/23 Disabled Parking Permit #1 08/30/23 Parking Permit... #1 ea 08/30/23 sacubitril 24 mg-valsartan 26 mg 1 tab PO BID #180 tabs 08/30/23 tablet (Entresto) metoprolol succinate 50 mg 50 mg PO BID #180 tabs 01/30/24 tablet,extended release 24 hr Allergies Allergy/AdvReac Type Severity Reaction Status Date / Time No Known Drug Allergies Allergy Verified 02/01/24 16:24 Review of Systems Review of Systems ROS Unobtainable: All systems reviewed & are unremarkable except as noted in HPI and below Patient History Medical History Pseudoaneurysm following procedure Other thrombophilia Systolic CHF, chronic Chronic anticoagulation Paroxysmal atrial fibrillation Overweight History of bladder cancer Mixed hyperlipidemia Social History details: (Aide), no children; 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 in the right groin region. External: normal external exam Skin Other: Bruising throughout the right groin consistent with his stated procedure 1 week ago Extrem Other: Bruising in the right inguinal region. Course Orders Ordered: ED Orders 02/01/24 19:19 CT angio pelvis Stat Vital Signs Vital signs: Vital Signs - 8 hr 02/01/24 19:38 02/01/24 20:00 02/01/24 20:30 Pulse Rate 70 53 L 68 Respiratory Rate 20 20 21 Blood Pressure Pulse Oximetry 97 97 96 Oxygen Delivery Method 02/01/24 21:00 02/01/24 21:11 02/01/24 21:12 Pulse Rate 45 L 45 L Respiratory Rate 21 22 Blood Pressure 150/75 H Pulse Oximetry 97 97 Oxygen Delivery Method 02/01/24 22:06 Pulse Rate 48 L Respiratory Rate 17 Blood Pressure 170/80 H Pulse Oximetry 98 Oxygen Delivery Method Room Air MDM - Recheck/Abnormal Lab/Rx Medical Records Attestation: I reviewed the patient's medical records. Lab Data Attestation: I reviewed the patient's lab results. 02/01/24 16:45 02/01/24 16:45 Labs: Lab Results 02/01/24 Range/Units 16:45 WBC 7.2 (4.5-11.0) X10^3/uL RBC 4.57 (4.5-5.9) X10^6/uL Hgb 14.1 (13.5-17.5) g/dL Hct 43.3 (41-53) % MCV 94.7 (80-100) fL MCH 30.9 (26-34) PG MCHC 32.7 (30-36) % RDW 15.0 H (11.6-14.8) % Plt Count 181 (150-400) X10^3/uL Neut % (Auto) 60.8 (50-75) % Lymph % (Auto) 22.3 L (25-40) % [place] % (Auto) 10.8 (3-14) % Eos % (Auto) 5.5 H (2-4) % Baso % (Auto) 0.6 (0-2) % Neut # (Auto) 4300 (7505-4076) /uL Lymph # (Auto) 1600 (5369-9212) /uL [place] # (Auto) 800 (0-900) /uL Eos # (Auto) 400 (0-450) /uL Baso # (Auto) 0 (0-100) /uL Sodium 137 (137-145) mmol/L Potassium 4.7 (3.4-5.1) mmol/L Chloride 106 (98-107) mmol/L Carbon Dioxide 30 (22-32) mmol/L BUN 22 H (9-20) mg/dL Creatinine 1.39 H (0.66-1.25) mg/dL Estimated GFR 51 L (>60) mL/min BUN/Creatinine Ratio 15.8 (6-22) Glucose 108 (80-110) mg/dL Calcium 9.2 (8.4-10.2) mg/dL Total Bilirubin 1.1 (0.2-1.3) mg/dL AST 25 (17-59) IU/L ALT 22 (<50) IU/L Alkaline Phosphatase 67 (38-126) U/L Total Protein 6.7 (6.3-8.2) g/dL Albumin 3.7 (3.5-5.0) g/dL Globulin 3.0 (1.7-4.1) g/dL Albumin/Globulin Ratio 1.2 (1.0-2.8) Imaging Data CT pelvis: Radiologist's Impression: PROCEDURE: CT ANGIO PELVIS INDICATIONS: R groin mass after cardiac cath TECHNIQUE: After the administration of intravenous contrast, 2.5 mm sections acquired from the diaphragm to the iliac crests. 10 mm maximum intensity projection (MIP) coronal and sagittal reformats were then performed. For radiation dose reduction, the following was used: automated exposure control. COMPARISON: [facility], CT, CT ANGIO PELVIS, 01/29/2024, 20:53. FINDINGS: Image quality: Diagnostic Lower abdomen: Colonic diverticula. No small bowel obstruction or lower abdomen. No pathologic ascites. Bladder: There is mild perivesicular fat stranding. Possible small trabeculations and diverticula, usually from chronic obstruction. Reproductive organs: Dystrophic prostate calcifications, not well assessed on CT. 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 There is early filling of the right common femoral vein and external iliac vein compared to the left side. See coronal image 105. Mild atherosclerotic calcifications are present. No pathologic lymph nodes by size criteria. There are varicose veins throughout the right lower extremity Pelvic wall: Mild edematous fat stranding is seen around the right groin. No drainable fluid collection or hematoma Bones: Degenerative changes. 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 Early arterial filling of the right common femoral vein and external iliac veins are seen. No definite arterial pseudoaneurysm. Mild edema is seen around the right groin, without a drainable fluid collection. Mild perivesicular fat stranding, correlate urinalysis. Other findings above. MDM Narrative Medical decision making narrative: I discussed the case with Dr. gilbert on-call for Cardiology. He was able to look up the CT scan from 4 days ago. According to the report that he read it appeared that the patient had a VV fistula. Which is somewhat unusual given the arterial puncture needed to have the procedure done that the patient had. The patient is stable with normal heart rate and blood pressure. His hemoglobin hematocrit are unremarkable. The mass in his right groin has not changed in size however does appear to be new within the past 18-24 hours. I discussed the case with on-call Radiology he was able to re-evaluate the CT scan as well. They were more concerned that this was a V-A fistula. They recommended repeat CTA of the pelvis. Subsequent results of this study shows that there is a V-A fistula but there was no pseudoaneurysm. There were no signs of abscess or seroma as well. Unsure what the subcutaneous mass was that was palpable. I did discuss the case with the on-call vascular surgery at [facility]. They were able to review the CT scan as well. They stated that the patient could follow-up as an outpatient. I then re-contacted Dr. Gilbert he was able to put in a urgent referral for the patient to see vascular surgery. Will discharge patient home with strict return precautions. He expressed understanding and agreement with the plan. Discharge Plan Departure Patient Disposition: Home Clinical Impression: A-V fistula Activity Restrictions/Additional Instructions: Continue to take all of your medications as directed. There should be he urgent outpatient referral being placed to you for the vascular surgery department in [place]. I do recommend that you contact Dr. Peña's office on Sunday to follow-up with this. Return to the emergency department for new or worsening symptoms. Prescriptions: No Action (DME) Disabled Parking Permit See Rx Instructions .ROUTE .MEDSUPPLY Qty: 1 0RF Rx Instructions: I find this patient to be medically disabled and qualified for Disabled Parking as indicated and signed on the accompanying Disabled Parking Application for Individuals. metoprolol succinate 50 mg tablet extended release 24 hr 50 mg PO BID Qty: 180 3RF atorvastatin 20 mg tablet 20 mg PO DAILY Qty: 90 3RF Eliquis 5 mg tablet 5 mg PO BID Qty: 180 3RF (DME) Parking Permit... See Rx Instructions .Route .MEDSUPPLY Qty: 1 0RF Rx Instructions: As directed Entresto 24-26 mg tablet 1 tab PO BID Qty: 180 3RF Referrals: Branden Chaidez MD [Primary Care Provider] - Stand Alone Forms: Patient Portal/API/Survey
--- NOTE | 2024-02-01 19:19 | DI.CT.S_ITS ---
PROCEDURE: CT ANGIO PELVIS INDICATIONS: R groin mass after cardiac cath TECHNIQUE: After the administration of intravenous contrast, 2.5 mm sections acquired from the diaphragm to the iliac crests. 10 mm maximum intensity projection (MIP) coronal and sagittal reformats were then performed. For radiation dose reduction, the following was used: automated exposure control. COMPARISON: [facility], CT, CT ANGIO PELVIS, 01/29/2024, 20:53. FINDINGS: Image quality: Diagnostic Lower abdomen: Colonic diverticula. No small bowel obstruction or lower abdomen. No pathologic ascites. Bladder: There is mild perivesicular fat stranding. Possible small trabeculations and diverticula, usually from chronic obstruction. Reproductive organs: Dystrophic prostate calcifications, not well assessed on CT. 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 There is early filling of the right common femoral vein and external iliac vein compared to the left side. See coronal image 105. Mild atherosclerotic calcifications are present. No pathologic lymph nodes by size criteria. There are varicose veins throughout the right lower extremity Pelvic wall: Mild edematous fat stranding is seen around the right groin. No drainable fluid collection or hematoma Bones: Degenerative changes. 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 Early arterial filling of the right common femoral vein and external iliac veins are seen. No definite arterial pseudoaneurysm. Mild edema is seen around the right groin, without a drainable fluid collection. Mild perivesicular fat stranding, correlate urinalysis. Other findings above. Dictated by: Yann Ortiz M.D. on 02/01/2024 at 19:53 Approved by: Yann Ortiz M.D. on 02/01/2024 at 19:59
== END 2024-02-01 22:07 | disposition home or self-care (01) ==
PROVIDERS: Emergency Medicine; Emergency Provider Emergency Medicine; Family Provider Internal Medicine; PCP Internal Medicine
DX: I77.0 Arteriovenous fistula, acquired (principal)
CPT/HCPCS: 36415; 72191; 80053; 85025; 99283; 99284; Q9967

== ENCOUNTER → 2025-03-03 09:01 | Outpatient (CLI) | payer MEDICARE, SELFPAY ==
[2023-07-25 09:42] VITALS: BMI 29.9
[2025-03-03 10:28] LABS: Hematocrit 47.6 % (41-53); Hemoglobin 15.7 g/dL (13.5-17.5); Mean Corpuscular HGB Conc 33.0 % (30-36); Mean Corpuscular Hemoglobin 30.9 PG (26-34); Mean Corpuscular Volume 93.6 fL (80-100); Platelet Count 205 X10^3/uL (150-400)
[2025-03-03 10:58] LABS: Alanine Aminotransferase 20 IU/L (<50); Albumin 4.3 g/dL (3.5-5.0); Albumin Globulin Ratio 1.5 (1.0-2.8); Alkaline Phosphatase 79 U/L (38-126); Blood Urea Nitrogen 17 mg/dL (9-20); Calcium 9.8 mg/dL (8.4-10.2); Carbon Dioxide 29 mmol/L (22-32); Chloride 105 mmol/L (98-107); Cholesterol 204 mg/dL (140-199); Estimated Glomerular Filt Rate 50 mL/min (>60); Globulin 2.9 g/dL (1.7-4.1); Glucose 92 mg/dL (70-99); HDL Cholesterol 60 mg/dL (40-60); HEMOLYSIS < 15 (0-50); Potassium 5.2 mmol/L (3.4-5.1); Sodium 140 mmol/L (137-145); Total Protein 7.2 g/dL (6.3-8.2); Triglycerides 174 mg/dL (35-150)
[2025-03-03 11:26] LABS: TSH w/ Reflex to FT4 0.93 uIU/mL (0.47-4.68)
[2025-03-03 11:38] LABS: Vitamin B12 Reflex MMA if <400 792 pg/mL (239-931)
== END ==
PROVIDERS: Family Provider Internal Medicine; PCP Internal Medicine; Referring Provider Internal Medicine; Visit Provider Internal Medicine
DX: I48.0 Paroxysmal atrial fibrillation (principal); E78.2 Mixed hyperlipidemia; E53.8 Deficiency of other specified B group vitamins
CPT/HCPCS: 36415; 80053; 80061; 82607; 84443; 85027